=== PATIENT | male | born 1980 | race American Indian/Alaskan Native ===

== ENCOUNTER 2020-09-21 16:03 | Emergency (ER) | payer SELFPAY ==
[2020-09-21 17:00] LABS: Hematocrit 40.5 % (35.5-45.6); Hemoglobin 12.7 gm/dl (11.8-15.2); Mean Corpuscular HGB Conc 31 % (32-34); Platelet Count 235 K/mm3 (140-440); Red Blood Count 5.87 M/mm3 (3.65-5.03); Red Cell Distribution Width 17.3 % (13.2-15.2)
[2020-09-21 17:04] LABS: Mean Corpuscular Volume 69 fl (84-94)
[2020-09-21 17:15] LABS: Alanine Aminotransferase 13 units/L (7-56); Albumin 3.7 g/dL (3.9-5); BUN/Creatinine Ratio 17; Blood Urea Nitrogen 19 mg/dL (9-20); Calcium 9.1 mg/dL (8.4-10.2); Hemolysis Index 17
[2020-09-21 19:18] LABS: Basophils % (Manual) 0 % (0.0-1.8); Total Cells Counted 100
[2020-09-21 19:19] LABS: Hypochromasia 2+; Ovalocytes Rare; Tear Drop Cells Rare
[2020-09-21 19:20] LABS: Platelet Estimate Consistent w Auto
[2020-09-21 21:43] VITALS: BP 126/75
[2020-09-21] MEDS ORDERED: DICYCLOMINE 20 MG/2 ML INJ IM ONE (21:59)
--- NOTE | 2020-09-21 22:04 | Emergency Department Report ---
ED GI Bleed HPI - General Chief complaint: GI Bleed Stated complaint: RECTAL BLEEDING Time Seen by Provider: 09/21/20 21:46 Source: patient Mode of arrival: Ambulatory Limitations: No Limitations - History of Present Illness Initial comments: 40-year-old male, history of seizure disorder, anxiety, presents to ED with rectal bleeding, rectal pain and abdominal pain x3 days. Patient reports having formed stool along with the presence of bright red blood. Patient states he does not think he has a hemorrhoid. He denies any history of GI bleeding in the past. Patient showed me pictures of blood on toilet tissue and in the toilet bowl. When I told patient that I will need to perform a rectal exam, patient began to cry and refuse, stating he already has a colonoscopy scheduled for next week. MD complaint: blood on toilet paper, blood streaked stool -: days(s) Location: periumbilical, RLQ, suprapubic Radiation: none Quality: cramping Consistency: intermittent Improves with: none Worsens with: none Associated Symptoms: abdominal pain. denies: nausea, vomiting, fever/chills - Related Data Previous Rx's Medication Instructions Recorded Last Taken Type Dicyclomine [Bentyl] 20 mg PO QID PRN #20 tablet 09/21/20 Unknown Rx Allergies Allergy/AdvReac Type Severity Reaction Status Date / Time NSAIDS (Non-Steroidal Allergy Unknown Verified 09/21/20 16:20 Anti-Inflamma Penicillins Allergy Unknown Verified 09/21/20 16:20 Sulfa (Sulfonamide Allergy Unknown Verified 09/21/20 16:20 Antibiotics) ED Review of Systems ROS: Stated complaint: RECTAL BLEEDING Other details as noted in HPI Comment: All other systems reviewed and negative Constitutional: denies: fever Gastrointestinal: abdominal pain, hematochezia. denies: nausea, vomiting, diarrhea, constipation ED Past Medical Hx - Past Medical History Previous Medical History?: No - Surgical History Past Surgical History?: No Additional Surgical History: Gallbladder - Social History Smoking Status: Current Every Day Smoker - Medications Home Medications: Home Medications Medication Instructions Recorded Confirmed Last Taken Type Dicyclomine [Bentyl] 20 mg PO QID PRN #20 tablet 09/21/20 Unknown Rx ED Physical Exam - General Limitations: No Limitations General appearance: alert, in no apparent distress, obese - Head Head exam: Present: atraumatic, normocephalic - Eye Eye exam: Present: normal appearance, EOMI - ENT ENT exam: Present: mucous membranes moist - Neck Neck exam: Present: normal inspection - Respiratory Respiratory exam: Present: normal lung sounds bilaterally. Absent: respiratory distress - Cardiovascular Cardiovascular Exam: Present: regular rate, normal rhythm - GI/Abdominal GI/Abdominal exam: Present: soft, tenderness (Periumbilical, suprapubic, right lower quadrant). Absent: distended - Rectal Rectal exam: Present: other (Patient refused) - Extremities Exam Extremities exam: Present: normal inspection - Neurological Exam Neurological exam: Present: alert, oriented X3 - Psychiatric Psychiatric exam: Present: normal affect, normal mood - Skin Skin exam: Present: warm, dry, intact, normal color ED Course Vital Signs 09/21/20 09/21/20 09/21/20 16:21 21:35 21:36 Temperature 98.9 F Pulse Rate 97 H Respiratory 19 Rate Blood Pressure 132/91 126/75 O2 Sat by Pulse 94 99 97 Oximetry 09/21/20 09/21/20 21:38 21:40 Temperature Pulse Rate 86 Respiratory 14 Rate Blood Pressure 126/75 126/75 O2 Sat by Pulse 96 98 Oximetry - Reevaluation(s) Reevaluation #1: 09/21/20 22:25 Patient refusing to go to CT prior to getting pain medication. Patient now stating that he has chronic rectal pain secondary to colon cancer and has been taking buprenorphine. Patient did not report any history of colon cancer during my initial assessment. Patient states he has run out of his medication and nee ds something for pain. Patient is being very argumentative with staff, yelling and demanding IV morphine. Patient advised that we do not treat chronic pain in the ER. ED Medical Decision Making - Lab Data Result diagrams: 09/21/20 16:35 09/21/20 16:35 - Radiology Data Radiology results: report reviewed, image reviewed - Medical Decision Making 40-year-old male presents to ED with abdominal pain and rectal bleeding. Patient only showed me pictures of his rectal bleeding, refused an actual rectal exam. Patient initially told me that he will be getting a routine colonoscopy next week and he had no history of rectal bleeding or this abdominal pain. Jami werner then changed his story and states that he actually has colon cancer and is currently taking pain medications for his chronic rectal pain secondary to that colon cancer. Patient reports he ran out of his pain medication and was demanding IV morphine here in the ED. Patient was informed that we do not treat chronic pain here in the emergency room. CT scan was negative for any acute findings. Hemoglobin is within normal limits. Vital signs are normal. He has no evidence of instability from active bleeding. 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 - Differential Diagnosis Malingering, GI bleed, diverticulitis, malignancy Critical care attestation.: If time is entered above; I have spent that time in minutes in the direct care of this critically ill patient, excluding procedure time. ED Disposition Clinical Impression: GI bleed, Abdominal pain Disposition: - TO HOME OR SELFCARE Is pt being admited?: No Condition: Stable Instructions: Gastrointestinal Bleeding, Abdominal Pain, Adult, [id number] Prescriptions: Dicyclomine [Bentyl] 20 mg PO QID PRN #20 tablet PRN Reason: abdominal pain Referrals: PRIMARY CARE, [Primary Care Provider] - 3-5 Days [facility] [Provider Group] - 3-5 Days Forms: AMA Form, Accompanied Note Time of Disposition: 23:05
--- NOTE | 2020-09-21 22:54 | Cat Scan Report ---
CT ABDOMEN AND PELVIS WITHOUT CONTRAST HISTORY: abd pain, rectal bleeding. COMPARISON: None. TECHNIQUE: CT images of the abdomen and pelvis were obtained without administration of intravenous co ntrast. All CT scans at this location are performed using CT dose reduction for ALARA by means of au tomated exposure control. FINDINGS: Lungs/bones: Lung bases are clear. There is mild DJD in the spine with no acute osseous abnormality. Abdomen/pelvis: The gallbladder is surgically absent. The liver, spleen, pancreas, adrenals, and pro ximal GI tract appear unremarkable. There is bilateral renal nonobstructive nephrolithiasis with larg est stone on the right measuring 3 mm in the midpole region and on the left measuring 2 mm in the low er pole. No ureteral stone or hydronephrosis. Prostate and urinary bladder unremarkable. There is no pelvic free fluid. No acute colonic abnormalit y identified. The appendix is surgically absent. The terminal ileum is normal. There is a small fat-c ontaining umbilical hernia. IMPRESSION: 1. No acute abnormality identified. 2. Incidental findings as above. Signer Name: Joe Ventura MD Signed: 09/21/2020 10:50 PM Workstation Name: [id number]
== END 2020-09-21 23:20 | disposition home or self-care (01) ==
LOC: ED 16:03
DX: K92.2 Gastrointestinal hemorrhage, unspecified (principal); F17.200 Nicotine dependence, unspecified, uncomplicated; Z79.899 Other long term (current) drug therapy; Z88.0 Allergy status to penicillin; Z88.8 Allergy status to other drugs, medicaments and biological substances
CPT/HCPCS: 36415; 74176; 80053; 85007; 85025; 86850; 86900; 86901; 99283